=== PATIENT | male | born 1985 | race Caucasian/White ===

== ENCOUNTER 2016-11-29 08:14 | Emergency (ER) | payer MEDICAID ==
[~2016-11-29] VITALS: Ht 170.2 cm; Wt 81.0 kg
[~2016-11-29 08:14] MED LIST: ALPR.25 PO; SULF1TAB47 PO
[2016-11-29 08:20] VITALS: BP 139/96; PULSE 115; RESP 16; TEMP 98.8; O2SAT 95
[2016-11-29] MEDS ORDERED: AZIT250T3 PO (08:33)
[2016-11-29] MEDS ORDERED: DEXT1SUS PO (08:40)
[2016-11-29] MEDS ORDERED: ZOFR4TAB3 SL (08:40)
--- NOTE | 2016-11-29 08:40 | PD ---
HPI Chief Complaint: Cold / Flu Symptoms Time Seen by Provider: 08:37 Travel History International Travel<30 days: No Contact w/Intl Traveler<30days: No Traveled to known affect area: No History of Present Illness HPI 30-year-old male presents to the ER today with 4 days history of cough, nasal congestion, sore throat, nausea, vomiting, and one episode of diarrhea. He denies any fevers, chest pains, shortness of breath, or any other symptoms. He states that he came in just to see what it is. He does not know any sick contacts. Modifying Factors: None Associated Signs & Symptoms: Cough, cold symptoms, nausea, vomiting, diarrhea, sore throat Risk Factors: None PFSH Past Medical History Depression: Yes Diminished Hearing: No Past Surgical History Abdominal Surgery: Yes (HERNIA REPAIR, INGUINAL AGE 10) Social History Alcohol Use: Yes (1 1/2 PACKS OF BEER A WEEK) Tobacco Use: Yes (1/2 PPD) Substance Use: No (DENIES) Allergies-Medications (Allergen,Severity, Reaction): Coded Allergies: No Known Allergies (Verified , 11/29/16) Reported Meds & Prescriptions Reported Meds & Active Scripts Active Reported Azithromycin 250 Mg Tab 250 Mg PO DIRECTED Take 2 tabs (500 mg) on day 1 then 1 tab daily x 4 days. Review of Systems Except as stated in HPI: all other systems reviewed are Neg Physical Exam Narrative GENERAL: Young white male patient, well-developed, well-appearing, not in acute distress. Awake and oriented 4. SKIN: Warm and dry. HEAD: Atraumatic. Normocephalic. EYES: Pupils equal and round. No scleral icterus. No injection or drainage. ENT: No nasal bleeding or discharge. Mucous membranes pink and moist. No pharyngeal erythema or exudates. NECK: Trachea midline. No JVD. CARDIOVASCULAR: Regular rate and rhythm. No murmur appreciated. RESPIRATORY: No accessory muscle use. Clear to auscultation. Breath sounds equal bilaterally. No wheezing, crackles, or rhonchi. GASTROINTESTINAL: Abdomen soft, non-tender, nondistended. Hepatic and splenic margins not palpable. MUSCULOSKELETAL: No obvious deformities. No clubbing. No cyanosis. No edema. NEUROLOGICAL: Awake and alert. No obvious cranial nerve deficits. Motor grossly within normal limits. Normal speech. PSYCHIATRIC: Appropriate mood and affect; insight and judgment normal. Data Data Last Documented VS Vital Signs Date Time Temp Pulse Resp B/P Pulse Ox O2 Delivery O2 Flow Rate FiO2 11/29/16 08:20 98.8 115 16 139/96 95 MDM Medical Decision Making Medical Screen Exam Complete: Yes Emergency Medical Condition: Yes Medical Record Reviewed: Yes Differential Diagnosis URI versus pneumonia versus influenza Narrative Course Pulmonary exam is unremarkable and I do not suspect a pneumonia in this case. Symptoms are indicative of a viral illness. At this point, my plan would be to give him supportive treatment. Follow-up with primary care physician. Return for any worsening in symptoms as necessary. The plan has discussed with him and he states understanding. Diagnosis Primary Impression: Viral syndrome Med/Other Pt SpecificInfo: Prescription(s) given Scripts Ondansetron Odt (Zofran Odt)4 Mg Tab4 Mg SL Q6HR PRN (Nausea/Vomiting) #5 TAB Ref 0 Prov:Purnima Christian MD 11/29/16 Dextromethorphan Polistirex Liq (Robitussin 12 Hour Cough Liq)30 Mg/5 Ml Sus10 Ml PO Q12H PRN (COUGH) #89 ML Ref 0 Prov:Purnima Christian MD 11/29/16 Disposition: 01 DISCHARGE HOME Condition: Stable Purnima Christian MD Nov 29, 2016 08:40
== END 2016-11-29 08:57 | disposition home or self-care (01) ==
LOC: PHEFT 08:14
DX: B34.9 Viral infection, unspecified (principal); F17.210 Nicotine dependence, cigarettes, uncomplicated; F10.10 Alcohol abuse, uncomplicated
CPT/HCPCS: 99283